=== PATIENT | male | born 1965 | race Caucasian/White ===

== ENCOUNTER 2022-03-31 12:44 | Day surgery (SDC) | payer BC ==
[~2022-03-31] VITALS: Ht 180.3 cm; Wt 79.5 kg
--- NOTE | 2022-03-31 15:50 | NUR ---
03/31/22 1550 Sheets,Griselda 1541 PT ARRIVED ON 2L VIA NC, PT WAKES AND DENIES CONCERNS. VSS.
--- NOTE | 2022-04-01 13:13 | OR ---
[facility] [address], [place] [address] Signed DATE OF OPERATION: 03/31/2022 SURGEON: Boone Ontiveros MD PREOPERATIVE DIAGNOSIS: Colon screening. POSTOPERATIVE DIAGNOSIS: Sigmoid polyp (sessile). PROCEDURE: Total colonoscopy to cecum with cold snare polypectomy x1. ANESTHESIA: Intravenous sedation, fentanyl 150 mcg and Versed 7 mg. INDICATION: This healthy 56-year-old white man, who is a patient of Dr. Julissa Palomino, and was referred for screening colonoscopy. He has no symptoms of bleeding, diarrhea, or constipation and has no family history of colon cancer. He is admitted to undergo screening colonoscopy. He understands the risks of bleeding, infection, and perforation. FINDINGS: The prep was excellent. Complete colonoscopy was undertaken of the cecum without question. He had one linear sessile polyp in the sigmoid colon, which was excised with cold snare polypectomy technique without problem. PROCEDURE IN DETAIL: The patient was brought to the endoscopy suite and placed in the lateral decubitus position given intravenous sedation to the point of slurred speech and nystagmus. Digital rectal examination was normal. Full cardiopulmonary monitoring obtained. An Olympus video colonoscope was passed in the rectum and manipulated throughout the colon ultimately intubating the cecum itself. The ileocecal valve and appendiceal orifice were normal. The scope was withdrawn and examination throughout showed no sign of abnormality until approximately 40 cm from the anal verge in the sigmoid, where linear appearing polyp was noted this was excised with cold snare technique without problem. The specimen was passed for pathology. Further withdrawal of scope showed no other abnormality. The scope was retroflexed in the rectum showing no sign of abnormality either. The scope was straightened, withdrawn, removed. The patient was taken to the Electronically Signed By: BOONE ONTIVEROS MD 04/01/22 1313 PATIENT NAME: RODNEY SWAN OPERATIVE REPORT DATE OF : 69 REPORT #: [id number] PHYSICIAN: BOONE ONTIVEROS MD PCP: JULISSA PALOMINO MD REPORT IS CONFIDENTIAL AND NOT TO BE RELEASED WITHOUT AUTHORIZATION [facility] [address], [place] [address] Signed recovery room in good condition. CONCLUSION DIAGNOSIS: Polyps x1. PLAN: Recommend repeat colonoscopy in 3 years or sooner if clinically indicated. If the polyp proves to be hyperplastic, it would be acceptable to repeat in 5 to 7 years instead of 3 years it is noted. MD BLAIRE Clemens/MODL /[id number] cc: Julissa Palomino MD Copies: JULISSA PALOMINO MD ~ Electronically Signed By: BOONE ONTIVEROS MD 04/01/22 1313 PATIENT NAME: RODNEY SWAN OPERATIVE REPORT DATE OF : 69 REPORT #: [id number] PHYSICIAN: BOONE ONTIEVROS MD PCP: JULISSA PALOMINO MD REPORT IS CONFIDENTIAL AND NOT TO BE RELEASED WITHOUT AUTHORIZATION
--- NOTE | 2022-04-06 16:49 | PATH ---
[facility] [address] [facility] [place] [place] [address] Signed SPECIMEN(S): A SIGMOID POLYP SPECIMEN SOURCE: A. SIGMOID POLYP CLINICAL HISTORY: Initial screening colonoscopy. No family history of colon polyps or colon cancer. FINAL PATHOLOGIC DIAGNOSIS: Colon, sigmoid, polypectomy: - Tubular adenoma, one fragment. - Additional fragments of colonic epithelium are within normal limits. - There is no evidence of high-grade dysplasia or malignancy. TWK:[facility]:C2NR MICROSCOPIC EXAMINATION: Histologic sections of all submitted blocks are examined by light microscopy. These findings, together with the gross examination, support the pathologic diagnosis. GROSS DESCRIPTION: The specimen, labeled "Dash Swan, #1," and designated on the requisition "sigmoid polyp," is received in formalin and consists of three pinedo soft tissue fragments that measure 0.4 to 0.5 cm in greatest dimension. The specimen is entirely submitted in cassette (A1). FB (under the direct supervision of a pathologist) The Gross Description was prepared using a voice recognition system. The report was reviewed for accuracy; however, sound-alike word errors, addition and/or deletions may occur. If there is any question about this report, please contact Client Services. PERFORMING LABORATORY: The technical component was performed by [employer], [address] [place] [id number] (CLIA# [id number]). The professional interpretation was performed by [facility], [facility], [address] [place] [place] [address] (CLIA#: [id number]). Diagnostician: Jose Alfredo Ying MD Pathologist PATIENT NAME: DASH SWAN PATHOLOGY DATE OF : 69 REPORT #: [id number] PHYSICIAN: [facility] PCP: JULISSA CAMACHO MD REPORT IS CONFIDENTIAL AND NOT TO BE RELEASED WITHOUT AUTHORIZATION [address] [place], [place] [address] Signed Electronically Signed 04/06/2022 Copies: ~ PATIENT NAME: DASH SWAN PATHOLOGY DATE OF : 69 REPORT #: [id number] PHYSICIAN: [facility] PCP: JULISSA CAMACHO MD REPORT IS CONFIDENTIAL AND NOT TO BE RELEASED WITHOUT AUTHORIZATION
== END 2022-03-31 17:00 | disposition home or self-care (01) ==
LOC: OPS 12:44 → DS 12:44 → OPS 14:00
PROVIDERS: ATTEND Surgery
PROC: 0DBN8ZX Excision of Sigmoid Colon, Via Natural or Artificial Opening Endoscopic, Diagnostic (ICD-10-PCS; principal; 2022-03-31 14:00)
DX: Z12.11 Encounter for screening for malignant neoplasm of colon (principal); D12.5 Benign neoplasm of sigmoid colon; Z88.0 Allergy status to penicillin
CPT/HCPCS: 99153; G0500; J2250; J3010; J7121